=== PATIENT | male | born 1965 | race Caucasian/White ===

== ENCOUNTER 2018-06-13 17:32 | Emergency (ER) | payer OTHER ==
[~2018-06-13] VITALS: Ht 182.9 cm; Wt 74.8 kg
[~2018-06-13 17:32] MED LIST: AMITRIPTYLINE H25 M2 PO; CARVEDILOL6.25 MG PO; CO Q-10100 MG PO; EFFIENT10 MG PO; LIPITOR 20 MG T20 M1 PO; LISINOPRIL5 MG PO; NITROGLYCERIN0.4 MG SUBLING; NORCO 5-325 TA1 EACH PO; PRILOSEC40 MG PO; TRANSDERM-SCO1 PATCH TD
[2018-06-13] MEDS ORDERED: LIPITOR10 MG PO (17:42)
[2018-06-13] MEDS ORDERED: LOPRESSOR25 PO (17:42)
[2018-06-13] MEDS ORDERED: PRILOSEC 20 MG20 MG PO (17:43)
[2018-06-13] MEDS ORDERED: COZAAR 25 MG TA25 M1 PO (17:43)
[2018-06-13 18:06] LABS: HEMATOCRIT 41.2 % (42.0-52.0); HEMOGLOBIN 14.3 gm/dL (14.0-18.0); MCH 32.6 pg (26.0-34.0); MCHC 34.7 g/dL (28.0-37.0); MCV 93.8 fL (80.0-100.0); MPV 8.9 fl. (7.2-11.1); NUCLEATED RBCS 0 /100WBC; PLATELET COUNT* 247 thou/uL (150-400); RBC 4.39 mil/uL (4.50-6.00); RDW-CV 13.5 % (10.5-14.5); WBC 12.1 thou/uL (4.0-11.0)
[2018-06-13 18:20] LABS: CALCIUM 8.6 mg/dL (8.5-10.1); POTASSIUM 3.9 mmol/L (3.5-5.1); TOTAL BILIRUBIN 0.5 mg/dL (<0.1-1.0); TOTAL PROTEIN 8.1 g/dL (6.4-8.2)
[2018-06-13 18:40] LABS: ABSOLUTE LYMPHOCYTES 1.1 thou/uL (0.8-5.3); ABSOLUTE MONOCYTES 1.2 thou/uL (0.0-1.2); ABSOLUTE NEUTROPHILS 9.8 thou/uL (1.6-8.1)
[2018-06-13 18:41] LABS: PLATELET ESTIMATE ADEQUATE
[2018-06-13] MEDS ORDERED: ZOFRAN ODT4 MG PO (18:48)
[2018-06-13] MEDS ORDERED: NORCO 5-325 TA1 EACH PO (18:48)
[2018-06-13] MEDS ORDERED: KEFLEX500 M1 PO (18:48)
[2018-06-13 19:08] VITALS: BP 155/106
--- NOTE | 2018-06-14 15:56 | EKG ---
[place] [address] ELECTROCARDIOGRAM REPORT Name: BRIAN PALMER Room: [facility], [place]#: [id number] Admission: 06/13/18 Attend Phys: Discharge: 06/13/18 Date of : 61 Report #: [id number] THIS REPORT FOR: //name// [facility] ED Test Date: 2018-06-13 Test Time: 18:18:37 Pat Name: BRIAN PALMER Department: Room: Gender: Asp Developer: LEONEL : 1965 Requested By: Akosua Hou Order Number: [id number] MD: Alex Kimball Measurements Intervals [place] Rate: 85 P: 45 MN: 164 QRS: -35 QRSD: 88 T: 72 QT: 407 QTc: 484 Interpretive Statements Sinus rhythm Left atrial enlargement Left axis deviation Abnormal R-wave progression, late transition Borderline prolonged QT interval Compared to ECG 10/07/2015 07:48:54 T-wave abnormality no longer present Electronically Signed On 06-14-2018 15:56:37 CDT by Alex Kimball [email or web address] <ELECTRONICALLY SIGNED> By: Alex Kimball MD, [facility] 06/14/18 1556 1818 1818 Alex Kimball MD, [facility] /EPI
== END 2018-06-13 19:08 | disposition home or self-care (01) ==
LOC: M.ERS 17:32
PROVIDERS: Physician Assistant
DX: J06.9 Acute upper respiratory infection, unspecified (principal); Z90.49 Acquired absence of other specified parts of digestive tract; Z95.1 Presence of aortocoronary bypass graft; Z88.6 Allergy status to analgesic agent